=== PATIENT | female | born 1940 | race Caucasian/White ===

== ENCOUNTER → 2017-01-28 | Outpatient (CLI) | payer MEDICARE, OTHER | LOC: GMAL 10:59 | PROVIDERS: ATTEND Family Medicine | DX: D51.3 Other dietary vitamin B12 deficiency anemia (principal); E55.9 Vitamin D deficiency, unspecified; M10.00 Idiopathic gout, unspecified site ==

== ENCOUNTER → 2017-07-22 | Outpatient (CLI) | payer MEDICARE, OTHER | END | disposition home or self-care (01) | LOC: GMAL 11:11 | PROVIDERS: ATTEND Family Medicine | DX: R53.83 Other fatigue (principal); M10.9 Gout, unspecified ==

== ENCOUNTER → 2018-03-10 | Outpatient (CLI) | payer MEDICARE, OTHER | LOC: GMAL 10:38 | PROVIDERS: ATTEND Family Medicine | DX: D51.3 Other dietary vitamin B12 deficiency anemia (principal); R53.83 Other fatigue; E55.9 Vitamin D deficiency, unspecified; M10.9 Gout, unspecified ==

== ENCOUNTER → 2018-03-17 | Outpatient (CLI) | payer MEDICARE, OTHER | LOC: LAB.O 11:27 | PROVIDERS: ATTEND Family Medicine | DX: L65.8 Other specified nonscarring hair loss (principal) ==

== ENCOUNTER → 2018-04-12 | Outpatient (CLI) | payer MEDICARE, OTHER ==
--- NOTE | 2018-04-14 08:20 | MAM ---
EXAM DESCRIPTION: 3D Screening BILATERAL : Digital Mammography. CLINICAL HISTORY: 77 years Female SCREENING . No complaints and no personal history of breast cancer. Sister with breast cancer. Childbirth. Postmenopausal. Has taken HRT 5 or more years ago.. Lifetime risk of developing breast cancer (Tyrer-Cuzick model)(%): 7.2 COMPARISON: prior. No prior reports available. TECHNIQUE: Bilateral CC and MLO projection full-field images, Digital tomosynthesis mammographic technique. Bilateral digital 2-D full-field MLO images. CAD not utilized. FINDINGS: The breast parenchymal density pattern is: Scattered areas of fibroglandular density. No skin thickening or nipple retraction. Bilateral solitary calcifications. Group of microcalcifications is unremarkable and stable. Bilateral vascular calcifications. No new focal, stellate mass or density, focal asymmetry , and no suspicious microcalcifications bilaterally. Stable mammograms compared to prior study. Taking into account, differences in mammographic technique. IMPRESSION: Benign exam. BIRAD CATEGORY: 2 BENIGN FINDINGS. RECOMMENDATIONS: FOLLOW UP: Routine digital bilateral screening, one year interval from April 2018. Written communication explaining the IMPRESSION and follow-up, will be mailed to the patient and referring health care provider. According to the [employer], yearly mammograms are recommended starting at age 40 and continuing as long as a woman is in good health. Any breast change noted on a breast self-exam should be reported promptly to the patient's healthcare provider. Breast MRI is recommended for women with an approximately 20-25% or greater lifetime risk of breast cancer, including women with a strong family history of breast or ovarian cancer and women who have been treated for Hodgkin's disease. A negative mammographic report should not delay tissue diagnosis in patients with significant clinical history or physical findings. Extremely dense breast tissue limits the sensitivity of digital mammography. Electronically signed by: Richard Quiñonez MD 04/14/2018 8:19 AM CDT
== END ==
LOC: MAMMO 10:00
PROVIDERS: ATTEND Family Medicine
DX: Z12.31 Encounter for screening mammogram for malignant neoplasm of breast (principal)

== ENCOUNTER 2018-10-29 19:53 | Emergency (ER) | payer MEDICARE, OTHER ==
--- NOTE | 2018-10-29 21:06 | ED.PDOC ---
History of Present Illness - General Chief Complaint: General Stated Complaint: Right calf swelling redness Time Seen by Provider: 10/29/18 20:18 Source: patient, RN notes reviewed, Vital Signs reviewed Exam Limitations: no limitations - History of Present Illness Initial Comments: c/o pain & redness to her right calf. First noted tonight. Has been working in the yard earlier today & it is possible it was an insect bite. She is worried that she may have a blood clot. Occurred: this evening Pain - Lower Extremity: mild: Right Calf Improving Factors: nothing Worsening Factors: nothing Associated Symptoms: improving, less redness Allergies/Adverse Reactions: Allergies tape Allergy (Uncoded 02/25/16 18:19) Other tape and bandaids cause blistering Home Medications: Ambulatory Orders Allopurinol [Zyloprim] 200 mg PO DAILY 11/25/15 B-Complex Vitamins [B Complex] 1 cap PO DAILY 11/25/15 Calcium 500 mg PO DAILY 11/25/15 Cinnamon 500 mg PO BID 11/25/15 Telmisartan-Hydrochlorothiazid [Micardis Hct 80-25 mg] 0.5 tab PO DAILY 11/25/15 Review of Systems - Review of Systems Constitutional: States: no symptoms reported Respiratory: States: no symptoms reported Cardiology: States: no symptoms reported Gastrointestinal/Abdominal: States: no symptoms reported Musculoskeletal: States: see HPI Skin: States: see HPI Neurological: States: no symptoms reported Hematologic/Lymphatic: States: no symptoms reported Past Medical History (General) - Patient Medical History Hx Seizures: No Hx Stroke: No Hx Dementia: No Hx Asthma: No Hx of COPD: No Hx Cardiac Disorders: No Hx Congestive Heart Failure: No Hx Pacemaker: No Hx Hypertension: Yes Hx Thyroid Disease: No Hx Diabetes: No Hx Gastroesophageal Reflux: No Hx Renal Disease: No Hx Cancer: No Hx of HIV: No Hx Hepatitis C: No Hx MRSA: No Surgical History: cholecystectomy, Hysterectomy - Vaccination History Hx Tetanus, Diphtheria Vaccination: No Hx Influenza Vaccination: No Hx Pneumococcal Vaccination: Yes Immunizations Up to Date: Yes - Social History Hx Tobacco Use: No Hx Chewing Tobacco Use: No Hx Alcohol Use: No Hx Substance Use: No Hx Substance Use Treatment: No Hx Depression: No Feels Threatened In Home Enviroment: No Feels Threatened In a Relationship: No Hx Physical Abuse: No Hx Emotional Abuse: No Hx Suspected Abuse: No - Activities of Daily Living Hospice Agency (if applicable):: None - Female History Patient is a Female of Child Bearing Age (10 -59 yrs old): No Patient : No Family Medical History - Family History Mother Family History: Unknown Physical Exam - Physical Exam General Appearance: Alert, Comfortable, No apparent distress Neck: supple, normal inspection Cardiovascular/Respiratory: no respiratory distress Leg: normal ROM, soft tissue tenderness, swelling, other - fiant erythema. Area of induration that is tender - looks like an insect bite. Prominent varicosities Knee: normal inspection Ankle: normal inspection Neuro/Tendon: normal motor functions, normal tendon functions Mental Status: alert, oriented x 3 Skin: warm/dry, rash Progress - Progress Progress: 10/29/18 21:11 Exam atypical for DVT - I suspect a localized reaction possibly from an insect bite. However her d-dimer is elevated & her varicosities appear prominent. Will send her for an US. She declines EMS transfer. Teaching & precautions given. - Results/Orders Results/Orders: d-dimer 1.56 - Consult/PCP Time Called: 21:04 Consult/PCP: Dr. Swartz Departure - Departure Clinical Impression: Right calf pain Time of Disposition: 21:12 Disposition: Transfer to Hospital Condition: Good Home Medications: Ambulatory Orders Allopurinol [Zyloprim] 200 mg PO DAILY 11/25/15 B-Complex Vitamins [B Complex] 1 cap PO DAILY 11/25/15 Calcium 500 mg PO DAILY 11/25/15 Cinnamon 500 mg PO BID 11/25/15 Telmisartan-Hydrochlorothiazid [Micardis Hct 80-25 mg] 0.5 tab PO DAILY 11/25/15 Transfer to Outside Facility - Transfer Information Accepting Provider:: Dr. Swartz Accepting Facility: [facility] Reason for Transfer: specialized care not available - Ultrasound
[2018-10-29 21:30] VITALS: BP 172/85; TEMP 98.2; O2SAT 97
== END 2018-10-29 21:37 | disposition short-term general hospital (02) ==
LOC: ER 19:53
DX: M79.661 Pain in right lower leg (principal); R79.89 Other specified abnormal findings of blood chemistry; I10 Essential (primary) hypertension; Z79.899 Other long term (current) drug therapy

== ENCOUNTER → 2018-11-24 | Outpatient (CLI) | payer MEDICARE, OTHER | LOC: SL 19:10 | PROVIDERS: ATTEND Family Medicine | DX: G47.33 Obstructive sleep apnea (adult) (pediatric) (principal) ==

== ENCOUNTER → 2019-04-28 | Outpatient (CLI) | payer MEDICARE, OTHER ==
--- NOTE | 2019-05-01 14:23 | MAM ---
EXAM DESCRIPTION: 3D Screening BILATERAL : Digital Mammography. CLINICAL HISTORY: 78 years Female ANNUAL SCREENING . No complaints or personal history of breast cancer. Sister with breast cancer at age 58. Menarche age 12. Childbirth. Postmenopausal 35+ years. Has taken HRT 5 or more years ago.. Lifetime risk of developing breast cancer (Tyrer-Cuzick model)(%): 6.7. COMPARISON: Bilateral screening digital breast tomosynthesis 12 April 2018. 2-D digital screening bilateral mammography 22 April 2015. . TECHNIQUE: Bilateral CC and MLO projection full-field images, digital tomosynthesis mammographic technique. Bilateral digital 2-D full-field MLO images. CAD not available for tomosynthesis or 2-D images. FINDINGS: The breast parenchymal density pattern is: Scattered areas of fibroglandular density. No skin thickening or nipple retraction. Bilateral vascular calcifications. Bilateral solitary microcalcification. Group of benign type calcifications middle third left breast stable. No new focal, stellate mass or density, focal asymmetry , and no suspicious microcalcifications bilaterally. Stable mammograms compared to prior study. Taking into account, differences in mammographic technique. IMPRESSION: Benign exam. BIRAD CATEGORY: 2 BENIGN FINDINGS. RECOMMENDATIONS: FOLLOW UP: Routine digital bilateral mammographic screening, one year interval from April 2019. Written communication explaining the IMPRESSION and follow-up, will be mailed to the patient and referring health care provider. According to the [employer], yearly mammograms are recommended starting at age 40 and continuing as long as a woman is in good health. Any breast change noted on a breast self-exam should be reported promptly to the patient's healthcare provider. Breast MRI is recommended for women with an approximately 20-25% or greater lifetime risk of breast cancer, including women with a strong family history of breast or ovarian cancer and women who have been treated for Hodgkin's disease. A negative mammographic report should not delay tissue diagnosis in patients with significant clinical history or physical findings. Extremely dense breast tissue limits the sensitivity of digital mammography. Electronically signed by: Richard Quiñonez MD 05/01/2019 2:21 PM CDT
== END ==
LOC: MAMMO 12:59
PROVIDERS: ATTEND Family Medicine
DX: Z12.31 Encounter for screening mammogram for malignant neoplasm of breast (principal)

== ENCOUNTER → 2019-11-03 | Outpatient (CLI) | payer MEDICARE, OTHER | LOC: GMAL 11:29 | PROVIDERS: ATTEND Family Medicine | DX: D51.3 Other dietary vitamin B12 deficiency anemia (principal); R53.83 Other fatigue; E55.9 Vitamin D deficiency, unspecified; I10 Essential (primary) hypertension; E11.9 Type 2 diabetes mellitus without complications; E78.49 Other hyperlipidemia ==

== ENCOUNTER → 2020-03-22 | Outpatient (CLI) | payer OTHER | LOC: GMAL 11:03 | PROVIDERS: ATTEND Family Medicine | DX: E55.9 Vitamin D deficiency, unspecified (principal); E78.49 Other hyperlipidemia; E11.9 Type 2 diabetes mellitus without complications; I10 Essential (primary) hypertension ==

== ENCOUNTER → 2020-05-23 | Outpatient (CLI) | payer OTHER ==
--- NOTE | 2020-05-24 16:46 | MAM ---
EXAM DESCRIPTION: 3D Screening BILATERAL : Digital Mammography. CLINICAL HISTORY: 80 years Female screening . No complaints. Sister with breast cancer age 60. Menarche age 12. Childbirth age 20. Menopause age unknown. HRT 5 or more years ago.. Lifetime risk of developing breast cancer (Tyrer-Cuzick model)(%): 5.7. COMPARISON: Bilateral screening digital breast tomosynthesis April 2018 and April 2019.. TECHNIQUE: Bilateral CC and MLO projection full-field images, digital tomosynthesis mammographic technique. Bilateral digital 2-D full-field MLO images. CAD available for 2-D images. FINDINGS: The breast parenchymal density pattern is: Scattered areas of fibroglandular density. No skin thickening or nipple retraction. Vascular calcifications. Solitary microcalcifications. Stable focal asymmetry upper outer quadrant anterior third right breast. No new focal, stellate mass or density, focal asymmetry , and no suspicious microcalcifications bilaterally. Stable mammograms compared to prior study. IMPRESSION: Benign exam. BIRAD CATEGORY: 2 BENIGN FINDINGS. RECOMMENDATIONS: FOLLOW UP: Routine digital bilateral mammographic screening, one year interval from May 2020. Written communication explaining the IMPRESSION and follow-up, will be mailed to the patient and referring health care provider. The FINDINGS and the FOLLOW-UP plan were reviewed in person with the patient after the examination. The FINDINGS and the FOLLOW-UP plan were reviewed by Dr. Quiñonez during video conference with the patient after the examination. According to the [employer], yearly mammograms are recommended starting at age 40 and continuing as long as a woman is in good health. Any breast change noted on a breast self-exam should be reported promptly to the patient's healthcare provider. Breast MRI is recommended for women with an approximately 20-25% or greater lifetime risk of breast cancer, including women with a strong family history of breast or ovarian cancer and women who have been treated for Hodgkin's disease. A negative mammographic report should not delay tissue diagnosis in patients with significant clinical history or physical findings. Extremely dense breast tissue limits the sensitivity of digital mammography. Electronically signed by: Richard Qiuñonez MD 05/24/2020 4:44 PM [employer]OL [employer] SET UP OPERATOR
== END ==
LOC: MAMMO 13:30
PROVIDERS: ATTEND Family Medicine
DX: Z12.31 Encounter for screening mammogram for malignant neoplasm of breast (principal)